=== PATIENT | female | born 1955 | race Two or more races ===

== ENCOUNTER 2019-07-25 10:02 | Emergency (ER) | payer BC, OTHER ==
[~2019-07-25] VITALS: Ht 157.5 cm; Wt 80.7 kg
[2019-07-25 10:23] VITALS: BP 137/79
[2019-07-25] MEDS ORDERED: ACETAMINOPHEN 500 MG TAB PO ONE (12:15)
== END 2019-07-25 12:35 | disposition home or self-care (01) ==
LOC: ER 10:02
DX: G43.909 Migraine, unspecified, not intractable, without status migrainosus (principal); E11.9 Type 2 diabetes mellitus without complications; I10 Essential (primary) hypertension
CPT/HCPCS: 70450